=== PATIENT | male | born 1985 | race Caucasian/White ===

== ENCOUNTER 2016-06-16 11:05 | Emergency (ER) | payer SELFPAY ==
--- NOTE | 2016-06-16 12:20 | ER Document Report ---
ED Medical Screen (RME) - General Chief Complaint: Abscess Stated Complaint: POSSIBLE SPIDER Notes: Patient believes he has a spider bite on the back of his right upper thigh. He' s had a couple of similar lesions in the past. Did not actually see a spider. Lesion has not drained. No fever. TRAVEL OUTSIDE OF THE [place] IN LAST 30 DAYS: No - Related Data Allergies/Adverse Reactions: No Known Allergies Allergy (Verified 06/16/16 11:12) Past Medical History Renal/ Medical History: Denies: Hx Peritoneal Dialysis Past Surgical History: Reports: Hx Orthopedic Surgery - Immunizations Hx Diphtheria, Pertussis, Tetanus Vaccination: Yes Physical Exam - Vital signs Vitals: Temp Pulse Resp BP Pulse Ox 98.4 F 79 16 136/84 H 99 06/16/16 11:10 06/16/16 11:10 06/16/16 11:10 06/16/16 11:10 06/16/16 11:10 Course - Vital Signs Vital signs: Temp Pulse Resp BP Pulse Ox 98.4 F 79 16 136/84 H 99 06/16/16 11:10 06/16/16 11:10 06/16/16 11:10 06/16/16 11:10 06/16/16 11:10
[2016-06-16] MEDS ORDERED: IBUPROFEN 800 MG TABLET PO ONE (13:39)
[2016-06-16] MEDS ORDERED: LIDOCAINE 4%/TETRACAINE 0.5%/EPI 0.18% 5 ML TOPICAL SOLN TOP ONE (13:39)
--- NOTE | 2016-06-16 13:40 | ER Document Report ---
HPI - HPI Patient complains to provider of: abscess behind right thigh/buttocks Onset: Other - few days Quality of pain: Throbbing Pain Level: 5 Context: 30 yo female with hx MRSA is c/o worsening abscess just below right buttocks. No fever or chills. Associated Symptoms: None Exacerbated by: Denies Relieved by: Denies Similar symptoms previously: Yes Recently seen / treated by doctor: No - ROS ROS below otherwise negative: Yes Systems Reviewed and Negative: Yes All other systems reviewed and negative - DERM Skin Color: Normal Past Medical History - General Information source: Patient - Social History Smoking Status: Current Every Day Smoker Chew tobacco use (# tins/day): No Frequency of alcohol use: Occasional Drug Abuse: None Family History: Reviewed & Not Pertinent Patient has suicidal ideation: No Patient has homicidal ideation: No Renal/ Medical History: Denies: Hx Peritoneal Dialysis Skin Medical History: Reports Hx MRSA Past Surgical History: Reports: Hx Orthopedic Surgery - IF rt 3rd finger - Immunizations Hx Diphtheria, Pertussis, Tetanus Vaccination: Yes Vertical Provider Document - CONSTITUTIONAL Agree With Documented VS: Yes Exam Limitations: No Limitations General Appearance: No Apparent Distress - INFECTION CONTROL TRAVEL OUTSIDE OF THE [place] IN LAST 30 DAYS: No - HEENT HEENT: Normocephalic - NECK Neck: Supple - RESPIRATORY Respiratory: Breath Sounds Normal, No Respiratory Distress O2 Sat by Pulse Oximetry: 99 - CARDIOVASCULAR Cardiovascular: Regular Rate, Regular Rhythm - MUSCULOSKELETAL/EXTREMETIES Musculoskeletal/Extremeties: MAEW, FROM - NEURO Level of Consciousness: Awake, Alert - DERM Integumentary: Abscess - tense red 2 cm abscess with crusted center posterior proximal right thigh Course - Vital Signs Vital signs: Temp Pulse Resp BP Pulse Ox 98.4 F 79 16 136/84 H 99 06/16/16 11:10 06/16/16 11:10 06/16/16 11:10 06/16/16 11:10 06/16/16 11:10 Procedures - Incision and Drainage Right Thigh Time completed: 14:31 Type: Simple Anesthetic type: 1% Lidocaine mL's of anesthetic: 4 Blade size: 11 I&D procedure: Other - surgiscrub Incision Method: Incision made by scalpel - no pus, blood, corner of 4 x 4 packing, dry dressing Discharge - Discharge Clinical Impression: I and D posterior right thigh, MRSA cellulitis Condition: Good Disposition: HOME, SELF-CARE Instructions: MRSA Cellulitis ([facility]), Trimethoprim-Sulfa ([facility]), Post Incision and Drainage, Anti-Inflammatory Medication ([facility]) Additional Instructions: warm compress dry dressing keep the dressing on until saturday morning, then use washcloth in shower to wash with antibacterial soap return to er if worse Please complete the patient satisfaction survey if you get one, and return it.. If you do not receive a survey, then you can go to the [facility] website, [email or web address] and place your comments about your very good care. Thank you very much. It was a pleasure being your medical provider today. Prescriptions: Sulfamethoxazole/Trimethoprim [Sulfamethoxazole-Tmp Ds Tablet] 1 each PO BID # 14 tablet Forms: Return to Work
[2016-06-16 15:08] VITALS: BP 112/70
== END 2016-06-16 15:06 | disposition home or self-care (01) ==
LOC: ER 11:05
PROC: 0H9HXZZ Drainage of Right Upper Leg Skin, External Approach (ICD-10-PCS; principal; 2016-06-16)
DX: A49.02 Methicillin resistant Staphylococcus aureus infection, unspecified site (principal); L02.31 Cutaneous abscess of buttock; F17.200 Nicotine dependence, unspecified, uncomplicated
CPT/HCPCS: 99283; 10060; J3490